=== PATIENT | female | born 1965 | race Caucasian/White ===

== ENCOUNTER → 2017-01-31 | Outpatient (CLI) | payer BC ==
--- NOTE | 2017-02-02 07:26 | MM ---
Reason for exam: screening (asymptomatic). Last mammogram was performed 1 year and 2 months ago. History: Patient is postmenopausal. Family history of breast cancer in mother at age 60 and breast cancer in maternal aunt. Benign US breast aspiration single LT of the left breast, May 14, 2015. Benign US breast aspiration single LT of the left breast, July 16, 2013. Took hormonal contraceptives for 4 years beginning at age 27. Physical Findings: A clinical breast exam by your physician is recommended on an annual basis and results should be correlated with mammographic findings. MG 3D Screening Mammo W/Cad Bilateral CC and MLO view(s) were taken. Prior study comparison: November 17, 2015, left breast MG 3d diag mammo w/cad LT. March 24, 2015, bilateral MG 3d diag mammo w/cad KAVYA. The breast tissue is heterogeneously dense. This may lower the sensitivity of mammography. Finding: There is a 7 mm obscured round mass in the posterior, central position of the right breast. Portal ultrasound of 2.5cm mass posterior upper outer quadrant in the left breast at area prior site and aspiration 11/17/15. Finding is changed and increased in size since November 17, 2015 and March 24, 2015. ASSESSMENT: Incomplete: need additional imaging evaluation, BI-RAD 0 RECOMMENDATION: Ultrasound of both breasts. [facility] will attempt to contact patient to return for ultrasound.
== END | disposition home or self-care (01) ==
LOC: RADMAMWWP 13:34
PROVIDERS: ATTEND Internal Medicine
DX: Z12.31 Encounter for screening mammogram for malignant neoplasm of breast (principal)
CPT/HCPCS: 77063; G0202

== ENCOUNTER → 2017-08-21 | Outpatient (CLI) | payer BC ==
--- NOTE | 2017-08-21 10:26 | USB ---
Reason for exam: follow-up at short interval from prior study. History: Patient is postmenopausal. Family history of breast cancer in mother at age 60 and breast cancer in maternal aunt. Benign US breast aspiration single LT of the left breast, May 14, 2015. Benign US breast aspiration single LT of the left breast, July 16, 2013. Took hormonal contraceptives for 4 years beginning at age 27. Physical Findings: Nurse did not find any significant physical abnormalities on exam. US Breast LT Left complete breast ultrasound includes all four quadrants, the retroareolar region and axilla. Finding demonstrates a 0.4 x 0.2 x 0.4cm lesion too small to characterize at 12 o'clock, stable, likely benign, a 1.1 x 0.8 x 1.1cm cystic lesion at 3 o'clock, much smaller in size, 3.4cm previously, a 0.5 x 0.3 x 0.5cm cystic lesion at 10 o'clock and additional 5mm and smaller cysts are noted. No suspicious solid lesions. These results were verbally communicated with the patient and result sheet given to the patient on 08/21/17. ASSESSMENT: Probably benign, BI-RAD 3 RECOMMENDATION: Follow-up diagnostic mammogram of both breasts in 6 months.
== END | disposition home or self-care (01) ==
LOC: RADUSWWP 08:56
PROVIDERS: ATTEND Surgery
DX: R92.8 Other abnormal and inconclusive findings on diagnostic imaging of breast (principal)

== ENCOUNTER → 2018-02-07 | Outpatient (CLI) | payer BC ==
--- NOTE | 2018-02-07 11:57 | MM ---
Reason for exam: additional evaluation requested from prior study. Last mammogram was performed 1 year ago. History: Patient is postmenopausal. Family history of breast cancer in mother at age 60 and breast cancer in maternal aunt. Benign US breast aspiration single LT of the left breast, May 14, 2015. Benign US breast aspiration single LT of the left breast, July 16, 2013. Took hormonal contraceptives for 4 years beginning at age 27. Physical Findings: Nurse did not find any significant physical abnormalities on exam. MG 3D Diag Mammo W/Cad KAVYA Bilateral CC and MLO view(s) were taken. Prior study comparison: January 31, 2017, bilateral MG 3d screening mammo w/cad. November 17, 2015, left breast MG 3d diag mammo w/cad LT. The breast tissue is heterogeneously dense. This may lower the sensitivity of mammography. No suspicious calcifications are seen. Left breast mass is significantly smaller. No significant new findings when compared with previous films. These results were verbally communicated with the patient and result sheet given to the patient on 02/07/18. ASSESSMENT: Benign, BI-RAD 2 RECOMMENDATION: Routine screening mammogram of both breasts in 1 year.
== END | disposition home or self-care (01) ==
LOC: RADMAMWWP 11:01
PROVIDERS: ATTEND Surgery
DX: R92.8 Other abnormal and inconclusive findings on diagnostic imaging of breast (principal)
CPT/HCPCS: 77062; 77066

== ENCOUNTER → 2018-05-15 | Outpatient (CLI) | payer BC ==
--- NOTE | 2018-05-15 15:09 | US ---
EXAMINATION TYPE: US venous doppler duplex LE LT DATE OF EXAM: 05/15/2018 2:57 PM COMPARISON: NONE CLINICAL HISTORY: I80.9 Phlebitis and thrombophlebitis, M25.562. Bruising left lower leg. Trauma to l eft knee 05/11/18 SIDE PERFORMED: left TECHNIQUE: The lower extremity deep venous system is examined utilizing real time linear array sonog kathy with graded compression, doppler sonography and color-flow sonography. VESSELS IMAGED: External Iliac Vein (EIV) Common Femoral Vein Deep Femoral Vein Greater Saphenous Vein * Femoral Vein Popliteal Vein Small Saphenous Vein * Proximal Calf Veins (* superficial vessels) Left Leg: No evidence of DVT IMPRESSION: 1. No diagnostic evidence of DVT as visualized.
== END | disposition home or self-care (01) ==
LOC: RADUSWWP 14:24
PROVIDERS: ATTEND Orthopaedic Surgery
DX: M25.562 Pain in left knee (principal); I80.9 Phlebitis and thrombophlebitis of unspecified site

== ENCOUNTER → 2019-02-20 | Outpatient (CLI) | payer BC ==
--- NOTE | 2019-02-21 13:48 | MM ---
Reason for exam: screening (asymptomatic). Last mammogram was performed 1 year ago. History: Patient is postmenopausal. Family history of breast cancer in mother at age 60 and breast cancer in maternal aunt. Benign US breast aspiration single LT of the left breast, May 14, 2015. Benign US breast aspiration single LT of the left breast, July 16, 2013. Took hormonal contraceptives for 4 years beginning at age 27. Physical Findings: A clinical breast exam by your physician is recommended on an annual basis and results should be correlated with mammographic findings. MG 3D Screening Mammo W/Cad Bilateral CC and MLO view(s) were taken. Prior study comparison: February 07, 2018, bilateral MG 3d diag mammo w/cad KAVYA. January 31, 2017, bilateral MG 3d screening mammo w/cad. The breast tissue is heterogeneously dense. This may lower the sensitivity of mammography. There is a focal asymmetry with possible calcification, left MLO view, posterior position. This finding is changed when compared with previous exams. ASSESSMENT: Incomplete: need additional imaging evaluation, BI-RAD 0 RECOMMENDATION: Special view mammogram of the left breast. If lesion persists on supplemental views, image directed ultrasound is recommended. [facility] will attempt to contact patient to return for supplemental views and ultrasound if indicated.
== END | disposition home or self-care (01) ==
LOC: RADMAMWWP 07:24
PROVIDERS: ATTEND Internal Medicine
DX: Z12.31 Encounter for screening mammogram for malignant neoplasm of breast (principal)
CPT/HCPCS: 77063; 77067

== ENCOUNTER → 2019-03-12 | Outpatient (CLI) | payer BC ==
--- NOTE | 2019-03-12 11:18 | MM ---
Reason for exam: additional evaluation requested from abnormal screening. Last mammogram was performed 1 month ago. History: Patient is postmenopausal. Family history of breast cancer in mother at age 60 and breast cancer in maternal aunt. Benign US breast aspiration single LT of the left breast, May 14, 2015. Benign US breast aspiration single LT of the left breast, July 16, 2013. Took hormonal contraceptives for 4 years beginning at age 27. Physical Findings: Nurse did not find any significant physical abnormalities on exam. MG 3D Work Up W/Cad LT CC and MLO view(s) were taken of the left breast. Prior study comparison: February 20, 2019, bilateral MG 3d screening mammo w/cad. February 07, 2018, bilateral MG 3d diag mammo w/cad KAVYA. The breast tissue is heterogeneously dense. This may lower the sensitivity of mammography. There are left upper outer quadrant calcifications in a circular pattern at site of prior biopsy, possible fat necrosis. 6 month follow up diagnostic left mammogram recommended. These results were verbally communicated with the patient and result sheet given to the patient on 03/12/19. ASSESSMENT: Probably benign, BI-RAD 3 RECOMMENDATION: Follow-up diagnostic mammogram of the left breast in 6 months.
== END | disposition home or self-care (01) ==
LOC: RADMAMWWP 09:53
PROVIDERS: ATTEND Internal Medicine
DX: R92.8 Other abnormal and inconclusive findings on diagnostic imaging of breast (principal)
CPT/HCPCS: 77061; 77065

== ENCOUNTER → 2019-09-10 | Outpatient (CLI) | payer BC ==
--- NOTE | 2019-09-10 12:02 | MM ---
Reason for exam: follow-up at short interval from prior study. Last mammogram was performed 6 months ago. History: Patient is postmenopausal. Family history of breast cancer in mother at age 60 and breast cancer in maternal aunt. Benign US breast aspiration single LT of the left breast, May 14, 2015. Benign US breast aspiration single LT of the left breast, July 16, 2013. Took hormonal contraceptives for 4 years beginning at age 27. Physical Findings: Nurse Summary: 1cm nodule in the left breast at 9 o'clock (nurse mj). MG 3D Diag Mammo W/Cad LT CC, MLO, ML, and spot compression MLO view(s) were taken of the left breast. Prior study comparison: March 12, 2019, left breast MG 3d work up w/cad LT. February 20, 2019, bilateral MG 3d screening mammo w/cad. The breast tissue is heterogeneously dense. This may lower the sensitivity of mammography. Finding: There are increased intermediate concern, suspicious heterogeneous, grouped/clustered calcifications in the upper outer quadrant, posterior position of the left breast 6cm from the nipple. There is no discrete abnormality including area of concern marked by BB left anterior inferior position. These results were verbally communicated with the patient and result sheet given to the patient on 09/10/19. ASSESSMENT: Suspicious, BI-RAD 4 Suspicious, BI-RAD 4 abnormality in the left breast (finding #1). Incomplete: need additional imaging evaluation, BI-RAD 0 of the left breast. RECOMMENDATION: Ultrasound of the left breast. (palpable) Stereotactic core biopsy of the left breast. (left breast calcifications) Manage on a clinical basis with regard to left nipple inversion. Called office with mammographic findings and has scheduled an appointment for the patient for 10/09/19 at 4:[address] Schmidt. Biopsy scheduled for 09/23/19 at 8:00. PRELIMINARY REPORT CALLED AND FAXED TO DR. SCHMIDT ON 09/10/19.
--- NOTE | 2019-09-10 13:09 | USB ---
Reason for exam: additional evaluation requested from abnormal screening. History: Patient is postmenopausal. Family history of breast cancer in mother at age 60 and breast cancer in maternal aunt. Benign US breast aspiration single LT of the left breast, May 14, 2015. Benign US breast aspiration single LT of the left breast, July 16, 2013. Took hormonal contraceptives for 4 years beginning at age 27. US Breast Limited LT Left limited breast ultrasound including focal area of concern, retroareolar and axilla demonstrates duct ectasia at the posterior nipple. These results were verbally communicated with the patient and result sheet given to the patient on 09/10/19. ASSESSMENT: Suspicious, BI-RAD 4 RECOMMENDATION: Stereotactic core biopsy of the left breast. (left breast calcifications) Called office with mammographic findings and has scheduled an appointment for the patient for 10/09/19 at 4:[address] Schmidt. Biopsy scheduled for 09/23/19 at 8:00. PRELIMINARY REPORT CALLED AND FAXED TO DR. SCHMIDT ON 09/10/19.
== END | disposition home or self-care (01) ==
LOC: RADMAMWWP 10:52
PROVIDERS: ATTEND Surgery
DX: R92.8 Other abnormal and inconclusive findings on diagnostic imaging of breast (principal)
CPT/HCPCS: 77061; 77065

== ENCOUNTER → 2019-09-23 | Day surgery (SDC) | payer BC ==
[2019-09-23 07:34] VITALS: RESP 16
[2019-09-23 08:44] VITALS: BP 130/86; PULSE 79; TEMP 98.2
--- NOTE | 2019-09-23 09:54 | MM ---
EXAMINATION TYPE: MG stereo VAD BX LT DATE OF EXAM: 09/23/2019 COMPARISON: Prior mammograms 09/10/2019, 03/12/2019 CLINICAL HISTORY: Abnormal mammogram TECHNIQUE: Stereotactic guided core biopsy of left breast. FINDINGS: The procedure of stereotactic guided core biopsy was explained to the patient. Benefits, alternatives, and risks were discussed. An informed consent was then obtained. The shortness pathway for biopsy was chosen. Shortness pathway was lateral to medial approach. I performed the localization, and procedure. A vacuum assisted biopsy gun was used to obtain multiple core samples. The patient tolerated the procedure well without any immediate complication. The patient was kept in the radiology department for short stay after the procedure and then discharged home in stable condition. Targeted calcifications are identified in specimen mammogram. Post biopsy mammogram shows the clip to appear in near position relative to the targeted area of concern on the preprocedure images. IMPRESSION: SUCCESSFUL, UNCOMPLICATED STEREOTACTIC GUIDED CORE BIOPSY OF AREA OF CONCERN IN THE left BREAST, FULL PATHOLOGY RESULTS TO FOLLOW. Biopsy clip as described. Pathology Results: High Risk LEFT BREAST LESION, STEREOTACTIC NEEDLE CORE BIOPSY: Focally atypical duct hyperplasia measuring less than 1 mm in greatest dimension in a background of florid usual type hyperplasia, duct cystic changes, metaplasia and duct ectasia. Appropriately controlled immunohistochemical studies for cytokeratin 5/6 shows loss of the expected cytoplasmic glandular pattern in the area of atypical hyperplasia; E-Cadherin is strongly positive in ducts and glandular proliferations ruling out Lobular Neoplasia.. Recommendation Surgical consult of the left breast. Needle loc and excision. Note that there may be slight inferior clip migration. MTDD
== END ==
LOC: RADMAMWWP 07:20
PROVIDERS: ATTEND Surgery
DX: N60.42 Mammary duct ectasia of left breast (principal); N60.92 Unspecified benign mammary dysplasia of left breast; Z88.0 Allergy status to penicillin
CPT/HCPCS: 88305; 88342; 88341; 19081; A4648; J2001

== ENCOUNTER 2019-11-01 06:54 | Day surgery (SDC) | payer BC ==
[2019-10-29 11:15] VITALS: BMI 26.6
[~2019-11-01 06:54] MED LIST: ACETAMINOPHEN TAB 500 MG TAB PO ONE; DEXAMETHASONE SOD PHOSPHATE 10 MG/ML 1 ML VIAL IV ONE; HEPARIN SODIUM,PORCINE 5,000 UNIT/ML 1 ML VIAL SQ ONE; HYDROmorphone 0.5 MG/0.5 ML SYRINGE IVP PRN; LACTATED RINGERS 1,000 ML IV SCH; LIDOCAINE 1% (10MG/ML) FOR IV START INTRADERMA PRN; ONDANSETRON 4 MG/2 ML VIAL IVP ONE; Pre Op ABX Message 1 EACH MISC MISCELLANE ONE
[2019-11-01] MEDS ORDERED: ACETAMINOPHEN TAB 500 MG TAB ONE (07:37)
[2019-11-01 07:38] LABS: Glucose,Whole Blood 94 mg/dL (75-99)
[2019-11-01] MEDS ORDERED: ONDANSETRON 4 MG/2 ML VIAL ONE (07:38)
[2019-11-01] MEDS ORDERED: ALPRAZolam 0.5 MG TAB ONE (07:39)
--- NOTE | 2019-11-01 08:06 | P.HPADDEND ---
H&P Addendum H&P Addendum Date: 11/01/19 No changes to the history and physical from 10/08. Patient was previously scheduled 10/20 but had to cancel and reschedule. We'll proceed with left breast wire localization biopsy.
[2019-11-01] MEDS ORDERED: LIDOCAINE 1% INJ 10MG/ML (20 ML MDV) SQ ONE (08:11)
[2019-11-01] MEDS ORDERED: BUPIVACAINE (PF) 0.25% 30 ML VIAL SQ ONE ×2 (09:22→09:45)
[2019-11-01] MEDS ORDERED: MIDAZOLAM 2 MG/2 ML VIAL ONE (09:23)
[2019-11-01] MEDS ORDERED: fentaNYL (PF) 50 MCG/ML 2 ML AMP ONE (09:23)
[2019-11-01] MEDS ORDERED: PROPOFOL 10 MG/ML 20 ML VIAL IV ONE (09:23)
[2019-11-01] MEDS ORDERED: LIDOCAINE 1% INJ 10MG/ML (20 ML MDV) ONE (09:23)
[2019-11-01] MEDS ORDERED: SODIUM CHLORIDE 0.9% 100 ML with CLINDAMYCIN 600 MG IV ONE ×2 (09:45)
[2019-11-01] MEDS ORDERED: HYDROcodone/APAP 5-325MG 1 EACH TAB PO PRN (10:20)
[2019-11-01] MEDS ORDERED: NALOXONE 0.4 MG/ML 1 ML VIAL IV PRN (10:20)
[2019-11-01 10:21] VITALS: TEMP 97.9
--- NOTE | 2019-11-01 10:24 | P.OP ---
Date of Procedure: 11/01/19 Procedure(s) Performed: PREOPERATIVE DIAGNOSIS: Abnormal left mammogram POSTOPERATIVE DIAGNOSIS: Same PROCEDURE: [] Breast wire localization biopsy SURGEON: Roxana EBL: Minimal ANESTHESIA: Sedation plus local COMPLICATIONS: None OPERATIVE PROCEDURE: Patient was placed on the operating room table in the supin e position. The patient's breast was prepped and draped in usual sterile fashion. A curvilinear incision was made adjacent to the wire entrance site. I followed the wire down into the breast tissue. The breast tissue around the tip of the wire was fully excised using electrocautery. The specimen was sent for specimen radiogram. The clip was present within the specimen. The subcutaneous tissues were inspected. No bleeding was seen. The subcutaneous tissues were closed using 3-0 Vicryl sutures. The skin was closed using a running 4-0 Monocryl stitch. Skin glue and sterile dressings were applied. DISPOSITION: Stable to recovery room
[2019-11-01] MEDS ORDERED: KETOROLAC 15 MG/ML 1 ML VIAL IVP ONE (11:10)
--- NOTE | 2019-11-01 11:23 | MM ---
EXAMINATION TYPE: MG pre op needle loc LT, MG surgical specimen LT DATE OF EXAM: 11/01/2019 8:43 AM COMPARISON: NONE HISTORY: Clip localization Informed consent was obtained and all the patient's questions were answered. The clip in question was localized mammographically. The standard sterile technique was utilized, as well as appropriate local anesthesia with 1% Lidocaine and bicarbonate. Localization needle followed by placement of a guidewire was performed under mammographic guidance. Verification images demonstrate appropriate deployment of the guidewire. The patient tolerated the procedure well and left the department in stable condition. Specimen radiograph demonstrates the clip in question to reside within the specimen. IMPRESSION: Successful needle localization and open biopsy left breast with pathology results pending . Pathology Results: Benign LEFT BREAST, NEEDLE LOCALIZATION: Benign breast with previous biopsy site and fibrocystic changes including sclerosing adenosis with calcifications, apocrine metaplasia, cysts, fibrosis, usual type ductal hyperplasia and fibroadenomatoid hyperplasia. No atypical ductal hyperplasia is identified. Recommendation Follow up mammogram of the left breast in 6 months. TIMOTHY
[2019-11-01 11:35] VITALS: BP 136/90; PULSE 73; RESP 16
== END 2019-11-01 11:39 | disposition home or self-care (01) ==
LOC: OR 06:54
PROVIDERS: ATTEND Surgery
DX: N60.12 Diffuse cystic mastopathy of left breast (principal); N60.82 Other benign mammary dysplasias of left breast; R92.1 Mammographic calcification found on diagnostic imaging of breast; M79.7 Fibromyalgia; Z90.710 Acquired absence of both cervix and uterus; Z98.890 Other specified postprocedural states; I10 Essential (primary) hypertension; F41.9 Anxiety disorder, unspecified; K21.9 Gastro-esophageal reflux disease without esophagitis; Z97.2 Presence of dental prosthetic device (complete) (partial); Z79.899 Other long term (current) drug therapy; Z88.0 Allergy status to penicillin
CPT/HCPCS: 88307; 76098; 19281; 19125; J2250; J1644; J1100; J2405; J2001; J3010; J1885; J2704

== ENCOUNTER → 2020-06-19 | Outpatient (CLI) | payer BC ==
--- NOTE | 2020-06-22 10:19 | MM ---
Reason for exam: follow-up at short interval from prior study. Last mammogram was performed 9 months ago. History: Patient is postmenopausal and has history of high-risk lesion on a previous biopsy at age 54. Family history of breast cancer in mother at age 60 and breast cancer in maternal aunt. Benign MG pre op needle loc LT of the left breast, November 01, 2019. High risk MG stereo VAD BX LT of the left breast, September 23, 2019. Benign US breast aspiration single LT of the left breast, May 14, 2015. Benign US breast aspiration single LT of the left breast, July 16, 2013. Took hormonal contraceptives for 4 years beginning at age 27. Physical Findings: Nurse did not find any significant physical abnormalities on exam. MG 3D Diag Mammo W/Cad KAVYA Bilateral CC and MLO view(s) were taken. Prior study comparison: September 10, 2019, left breast MG 3d diag mammo w/cad LT. March 12, 2019, left breast MG 3d work up w/cad LT. The breast tissue is heterogeneously dense. This may lower the sensitivity of mammography. Post surgical change left breast. Oval asymmetric density posterior inferior right MLO view not seen on 2019 but appears to have been present in 2018. 6 month follow up recommended. These results were verbally communicated with the patient and result sheet given to the patient on 06/19/20. ASSESSMENT: Probably benign, BI-RAD 3 RECOMMENDATION: Follow-up diagnostic mammogram of the right breast in 6 months.
== END | disposition home or self-care (01) ==
LOC: RADMAMWWP 14:33
PROVIDERS: ATTEND Surgery
DX: N60.92 Unspecified benign mammary dysplasia of left breast (principal); R92.8 Other abnormal and inconclusive findings on diagnostic imaging of breast
CPT/HCPCS: 77062; 77066

== ENCOUNTER 2020-12-11 08:50 | Day surgery (SDC) | payer BC ==
[2020-12-09 10:07] VITALS: BMI 25.0
[2020-12-11 09:16] VITALS: RESP 16; TEMP 96.9
[2020-12-11] MEDS: LACTATED RINGERS 1,000 ML IV SCH ×2 (09:17→10:21)
[2020-12-11] MEDS ORDERED: PROPOFOL 10 MG/ML 20 ML VIAL IV ONE (10:22)
[2020-12-11] MEDS ORDERED: LIDOCAINE 1% INJ 10MG/ML (20 ML MDV) ONE (10:22)
--- NOTE | 2020-12-11 10:38 | P.PCN ---
Date of Procedure: 12/11/20 Procedure(s) Performed: BRIEF HISTORY: Patient is a 55-year-old pleasant white female scheduled for an elective colonoscopy as a part of screening for colon rectal neoplasia. PROCEDURE PERFORMED: Colonoscopy. PREOPERATIVE DIAGNOSIS: Screening for colon cancer. IV sedation per Anesthesia. PROCEDURE: After informed consent was obtained, the patient, was brought into the endoscopy unit. IV sedation was administered by Anesthesia under continuous monitoring. Digital rectal examination was normal. Initially the Olympus CF-160 flexible video colonoscope was then inserted in the rectum, gradually advanced into the cecum without any difficulty. Careful examination was performed as the scope was gradually being withdrawn. Ileocecal valve and the appendiceal orifice were visualized and appeared normal. Prep was excellent. Mucosa of the cecum, ascending colon, transverse colon, descending colon, sigmoid colon, and rectum appeared normal. Retroflexion was performed in the rectum and no lesions were seen. The patient tolerated the procedure well. IMPRESSION: Normal-appearing colon from rectum to cecum with no evidence of colorectal neoplasia . RECOMMENDATIONS: Findings of this examination were discussed with the patient as well as a family.. She was advised to have a repeat screening colonoscopy in 10 years
[2020-12-11 11:00] VITALS: BP 108/73; PULSE 68
== END 2020-12-11 11:15 | disposition home or self-care (01) ==
LOC: ORWHC2ENDO 08:50
PROVIDERS: ATTEND Internal Medicine Gastroenterology
DX: Z12.11 Encounter for screening for malignant neoplasm of colon (principal); I10 Essential (primary) hypertension; E78.5 Hyperlipidemia, unspecified; F41.9 Anxiety disorder, unspecified; F32.9 Major depressive disorder, single episode, unspecified; M79.7 Fibromyalgia; Z79.899 Other long term (current) drug therapy; Z88.0 Allergy status to penicillin
CPT/HCPCS: 45378; J2001; J2704

== ENCOUNTER → 2020-12-23 | Outpatient (CLI) | payer BC ==
--- NOTE | 2020-12-23 10:51 | MM ---
Reason for exam: follow-up at short interval from prior study. Last mammogram was performed 6 months ago. History: Patient is postmenopausal and has history of high-risk lesion on a previous biopsy at age 54. Family history of breast cancer in mother at age 60 and breast cancer in maternal aunt. Benign MG pre op needle loc LT of the left breast, November 01, 2019. High risk MG stereo VAD BX LT of the left breast, September 23, 2019. Benign US breast aspiration single LT of the left breast, May 14, 2015. Benign US breast aspiration single LT of the left breast, July 16, 2013. Took hormonal contraceptives for 4 years beginning at age 27. Physical Findings: Nurse did not find any significant physical abnormalities on exam. MG 3D Diag Mammo W/Cad RT CC and MLO view(s) were taken of the right breast. Prior study comparison: June 19, 2020, bilateral MG 3d diag mammo w/cad KAVYA. September 10, 2019, left breast MG 3d diag mammo w/cad LT. The breast tissue is heterogeneously dense. This may lower the sensitivity of mammography. Stable benign calcifications. There is no discrete abnormality including area of concern. These results were verbally communicated with the patient and result sheet given to the patient on 12/23/20. ASSESSMENT: Benign, BI-RAD 2 RECOMMENDATION: Routine screening mammogram of both breasts in 6 months. Back on schedule.
== END | disposition home or self-care (01) ==
LOC: RADMAMWWP 09:22
PROVIDERS: ATTEND Surgery
DX: R92.8 Other abnormal and inconclusive findings on diagnostic imaging of breast (principal)
CPT/HCPCS: 77061; 77065

== ENCOUNTER → 2021-10-29 | Outpatient (CLI) | payer BC ==
--- NOTE | 2021-11-01 07:54 | MM ---
Reason for Exam: Screening (asymptomatic). Last mammogram was performed 1 year(s) and 4 month(s) ago. Patient History: Menarche at age 14. First Full-Term at age 20. Hysterectomy at age 44. Postmenopausal. Hormonal Contraceptives for 4 years from age 27 until age 39. 11/01/2019, Benign Core Biopsy on the left side. 09/23/2019, High risk Core Biopsy on the left side. 05/14/2015, Benign Cyst Aspiration on the left side. 07/16/2013, Benign Cyst Aspiration on the left side. Maternal aunt had breast cancer at or over age 50. Mother had breast cancer, age 60. Risk Values: Shweta 5 year model risk: 3.3%. NCI Lifetime model risk: 21.3%. Prior Study Comparison: 09/10/2019 Left Diagnostic Mammogram, [facility]. 06/19/2020 Bilateral Diagnostic Mammogram, [facility]. 12/23/2020 Right Diagnostic Mammogram, [facility]. Tissue Density: The breast tissue is heterogeneously dense. This may lower the sensitivity of mammography. Findings: Analyzed By CAD. There is no suspicious group of microcalcifications or new suspicious mass in either breast.. Postoperative changes left breast. Benign calcifications persist. Overall Assessment: Benign, BI-RAD 2 Management: Screening Mammogram of both breasts in 1 year. A clinical breast exam by your physician is recommended on an annual basis and results should be correlated with mammographic findings. Electronically signed and approved by: Minh Duran M.D. Radiologis
== END | disposition home or self-care (01) ==
LOC: RADMAMWWP 12:26
PROVIDERS: ATTEND Surgery
DX: Z12.31 Encounter for screening mammogram for malignant neoplasm of breast (principal)
CPT/HCPCS: 77063; 77067

== ENCOUNTER → 2023-01-06 | Outpatient (CLI) | payer BC ==
--- NOTE | 2023-01-09 08:17 | MM ---
Reason for Exam: Screening (asymptomatic). Last mammogram was performed 1 year(s) and 3 month(s) ago. Patient History: Menarche at age 14. First Full-Term at age 20. Hysterectomy at age 44. Postmenopausal. Hormonal Contraceptives for 4 years from age 27 until age 39. 11/01/2019, Benign Core Biopsy on the left side. 09/23/2019, High risk Core Biopsy on the left side. 05/14/2015, Benign Cyst Aspiration on the left side. 07/16/2013, Benign Cyst Aspiration on the left side. Maternal aunt had breast cancer at or over age 50. Mother had breast cancer, age 60. Risk Values: Shweta 5 year model risk: 3.4%. NCI Lifetime model risk: 20.8%. Prior Study Comparison: 06/19/2020 Bilateral Diagnostic Mammogram, [facility]. 12/23/2020 Right Diagnostic Mammogram, [facility]. 10/29/2021 Bilateral MG 3D screening mammo w/cad, [facility]. Tissue Density: The breast tissue is heterogeneously dense. This may lower the sensitivity of mammography. Findings: Analyzed By CAD. Pattern appears symmetrical and stable. Surgical clips are within the left breast. Benign appearing calcification is stable within the bilateral breasts. No suspicious groups of microcalcifications, spiculated or lobular masses, architectural distortion or other secondary signs of malignancy are mammographically apparent. Overall Assessment: Benign, BI-RAD 2 Management: Screening Mammogram of both breasts in 1 year. A negative mammogram report should not preclude additional follow up of suspicious palpable abnormalities. Patient should continue monthly self breast exam. A clinical breast exam by your physician is recommended on an annual basis and results should be correlated with mammographic findings. Electronically signed and approved by: Ryan Soriano D.O. Radiologis
== END | disposition home or self-care (01) ==
LOC: RADMAMWWP 07:47
PROVIDERS: ATTEND Family Medicine
DX: Z12.31 Encounter for screening mammogram for malignant neoplasm of breast (principal); Z78.0 Asymptomatic menopausal state; Z80.3 Family history of malignant neoplasm of breast
CPT/HCPCS: 77063; 77067

== ENCOUNTER → 2024-02-20 | Outpatient (CLI) | payer OTHER, BC ==
--- NOTE | 2024-02-22 09:52 | MM ---
Reason for Exam: Screening (asymptomatic). Last mammogram was performed 1 year(s) and 1 month(s) ago. Patient History: Menarche at age 14. First Full-Term at age 20. Hysterectomy at age 44. Postmenopausal. Hormonal Contraceptives for 4 years from age 27 until age 39. 11/01/2019, Benign Core Biopsy on the left side. 09/23/2019, High risk Core Biopsy on the left side. 05/14/2015, Benign Cyst Aspiration on the left side. 07/16/2013, Benign Cyst Aspiration on the left side. Maternal aunt had breast cancer at or over age 50. Mother had breast cancer, age 60. Risk Values: Shweta 5 year model risk: 3.6%. NCI Lifetime model risk: 20.4%. Prior Study Comparison: 12/23/2020 Right Diagnostic Mammogram, [facility]. 10/29/2021 Bilateral MG 3D screening mammo w/cad, [facility]. 01/06/2023 Bilateral MG 3D screening mammo w/cad, [facility]. Tissue Density: The breasts are heterogeneously dense, which may obscure small masses. Findings: Analyzed By CAD. There is no suspicious group of microcalcifications or new suspicious mass in either breast. Overall Assessment: Benign, BI-RAD 2 Management: Screening Mammogram of both breasts in 1 year. . Patient should continue monthly self-breast exams. A clinical breast exam by your physician is recommended on an annual basis. This exam should not preclude additional follow-up of suspicious palpable abnormalities. Note on Shweta scores and lifetime risk: 1. A Shweta score greater than 3% is considered moderate risk. If this is the case, consider specialist referral to assess eligibility for a risk reducing agent. 2. If overall lifetime risk for the development of breast cancer is 20% or higher, the patient may qualify for future screening with alternating mammogram and breast MRI. [facility], , 02/22/2024 9:49 AM. Electronically signed and approved by: Minh Duran M.D. Radiolog[facility]
== END | disposition home or self-care (01) ==
LOC: RADMAMWWP 10:51
PROVIDERS: ATTEND Family Medicine
DX: Z12.31 Encounter for screening mammogram for malignant neoplasm of breast (principal); R92.333 Mammographic heterogeneous density, bilateral breasts; Z78.0 Asymptomatic menopausal state; Z80.3 Family history of malignant neoplasm of breast
CPT/HCPCS: 77063; 77067